=== PATIENT | male | born 1965 | race Hispanic/Latino ===

== ENCOUNTER 2022-10-06 06:06 | Observation (INO) | payer MEDICARE ==
[2022-10-03 12:33] LABS: APPEARANCE,URINE CLEAR (CLEAR); BILIRUBIN,URINE NEGATIVE (NEGATIVE); COLOR,URINE COLORLESS (YELLOW); GLUCOSE, URINE (UA) NEGATIVE (NEGATIVE); KETONES,URINE NEGATIVE (NEGATIVE); LEUKOCYTE ESTERASE ,URINE NEGATIVE Leu/uL (NEGATIVE); NITRATE,URINE NEGATIVE (NEGATIVE); PROTEIN,URINE NEGATIVE (NEGATIVE); UROBILINOGEN,URINE 0.2 mg/dL (0.2-1.0)
[2022-10-03 12:40] LABS: BASOPHILS % (AUTO) 0.3 % (0.0-5.0); HEMATOCRIT 45.7 % (42-54); LYMPHOCYTES % (AUTO) 21.4 % (21.0-51.0); MEAN CORPUSCULAR HEMOGLOBIN 31.5 pg (27.0-33.0); MEAN CORPUSCULAR HGB CONC 32.8 g/dL (32.0-36.0); MONOCYTES % (AUTO) 7.9 % (3.0-13.0); NEUTROPHILS % (AUTO) 69.1 % (40.0-77.0); PLATELET COUNT (AUTO) 201 K/uL (130-400); RED BLOOD CELL COUNT(AUTO) 4.76 MIL/uL (4.50-6.20); RED CELL DISTRIBUTION WIDTH 12.7 % (11.0-15.5); WHITE BLOOD COUNT (AUTO) 6.8 K/uL (4.8-10.8)
[2022-10-03 12:45] LABS: MUCUS,URINE RARE LPF (None Seen); RBC,URINE 0-1 /HPF (0-1)
[2022-10-03 12:58] LABS: INR 0.97 (0.85-1.15); PROTHROMBIN TIME 10.6 SEC (9.6-11.6)
[2022-10-03 12:59] LABS: PARTIAL THROMBOPLASTIN TIME 25.2 SEC (26.3-35.5)
[2022-10-03 13:06] LABS: ALBUMIN 4.1 g/dL (3.5-5.0); CREATININE 0.8 mg/dL (0.5-1.5); TOTAL PROTEIN, SERUM 7.3 g/dL (6.0-8.3)
[2022-10-03 13:29] VITALS: BP 141/86
[~2022-10-06] VITALS: Ht 177.8 cm; Wt 136.2 kg
[2022-10-06] VITALS (20 sets, daily range): BP systolic 98–136; BP diastolic 63–95
[~2022-10-06 06:06] MED LIST: ACET-2247 PO; ATOR40TA71 PO; HYDR12.54 PO; METF-444 PO; TRANEXAMIC ACID 1000MG/10ML ONE; VANCOMYCIN 1G VIAL ONE
[2022-10-06] MEDS ORDERED: CEFAZOLIN SODIUM 1 GM VIAL ONE (07:05)
[2022-10-06] MEDS ORDERED: EPINEPHRINE PF 1MG (1:1,000) 1 MG/ML AMP ONE (07:05)
[2022-10-06] MEDS ORDERED: 0.9%NACL 1000ML 1,000 ML IV ONE (07:05)
[2022-10-06] MEDS ORDERED: PROPOFOL 10 MG/ML 20ML VIAL IV ONE (07:48)
[2022-10-06] MEDS ORDERED: SUCCINYLCHOLINE 200MG/10ML SYR ONE (07:48)
[2022-10-06] MEDS ORDERED: LIDOCAINE PF 100MG/5ML (2%) SYRINGE 5ML ONE (07:48)
[2022-10-06] MEDS ORDERED: FENTANYL CITRATE PF 50 MCG/1 ML 2ML VIAL ONE ×2 (07:49→10:20)
[2022-10-06] MEDS ORDERED: ROCURONIUM 10MG/1ML SYR 10 MG/ML ML ONE ×2 (07:49→08:21)
[2022-10-06] MEDS ORDERED: MIDAZOLAM HCL 1 MG/ML 2ML VIAL ONE (07:49)
[2022-10-06] MEDS ORDERED: CEFAZOLIN SODIUM 3 GM VIAL IV ONE (07:55)
[2022-10-06] MEDS ORDERED: GLYCOPYRROLATE 1 MG/5 ML SYRINGE ONE (10:11)
[2022-10-06] MEDS ORDERED: NEOSTIGMINE 5MG/5ML SYR IV ONE (10:11)
[2022-10-06] MEDS ORDERED: KETOROLAC 30MG VIAL (30MG/ML) ONE (10:26)
[2022-10-06] MEDS ORDERED: POTASSIUM CHLORIDE 10% ELIXIR 20 MEQ/15 ML UDCUP PO PRN (10:30)
[2022-10-06] MEDS ORDERED: ONDANSETRON 4MG INJ IVP PRN (10:30)
[2022-10-06] MEDS ORDERED: LIDOCAINE HCL-MPF 1% 2ML VIAL IV PRN (10:30)
[2022-10-06] MEDS ORDERED: KCL 20 MEQ ERTAB PO PRN (10:30)
[2022-10-06] MEDS ORDERED: POTASSIUM CHLORIDE 20MEQ/100ML 100 ML IV PRN (10:30)
[2022-10-06] MEDS ORDERED: MORPHINE 4 MG SYG IVP PRN (10:30)
[2022-10-06] MEDS: ACETAMINOPHEN 500 MG TABLET PO SCH ×2 (10:30→18:45)
[2022-10-06] MEDS ORDERED: HYDROCODONE/ACETAMINOPHEN 5/325 MG TAB PO PRN (10:30)
[2022-10-06] MEDS: ACETAMINOPHEN 1,000 MG/100 ML VIAL IV SCH ×2 (10:52→18:00)
[2022-10-06] MEDS: TRAMADOL HCL 50 MG TABLET PO SCH ×2 (13:34→18:07)
[2022-10-06] MEDS: 0.9%NACL 1000ML 1,000 ML IV SCH ×2 (13:38→17:38)
[2022-10-06] MEDS: IBUPROFEN 800MG + NS 250ML IV SCH ×2 (15:27→22:29)
[2022-10-06] MEDS ORDERED: CEFAZOLIN SODIUM 3 GM in DEXTROSE 5%-WATER 100 ML IVPB SCH (15:30)
[2022-10-06] MEDS ORDERED: CEFAZOLIN SODIUM 1 GM VIAL IVP SCH (15:30)
[2022-10-06] MEDS: METFORMIN HCL 500 MG TABLET PO SCH (17:25)
[2022-10-06] MEDS: CELECOXIB 200 MG CAP PO SCH (20:31)
[2022-10-06] MEDS: FAMOTIDINE 20MG TAB PO SCH (20:31)
[2022-10-06] MEDS: HYDROCODONE/ACETAMINOPHEN 10/325 MG TAB PO PRN (22:27)
[2022-10-07] VITALS: BP 126/59
[2022-10-07] MEDS: TRAMADOL HCL 50 MG TABLET PO SCH ×4 (00:25→17:37)
[2022-10-07] MEDS: ACETAMINOPHEN 1,000 MG/100 ML VIAL IV SCH (01:27)
[2022-10-07] MEDS: ACETAMINOPHEN 500 MG TABLET PO SCH ×2 (01:28→10:48)
[2022-10-07] MEDS: 0.9%NACL 1000ML 1,000 ML IV SCH (01:36)
[2022-10-07 04:00] VITALS: BP 119/69
[2022-10-07 05:40] LABS: HEMATOCRIT 35.3 % (42-54); MEAN CORPUSCULAR HGB CONC 32.9 g/dL (32.0-36.0); MEAN CORPUSCULAR VOLUME 97.5 fL (79-99); RED BLOOD CELL COUNT(AUTO) 3.62 MIL/uL (4.50-6.20); WHITE BLOOD COUNT (AUTO) 6.1 K/uL (4.8-10.8)
[2022-10-07 06:11] LABS: CREATININE 0.7 mg/dL (0.5-1.5); POTASSIUM 3.6 mmol/L (3.5-5.1)
[2022-10-07] MEDS: IBUPROFEN 800MG + NS 250ML IV SCH (06:23)
[2022-10-07] MEDS: METFORMIN HCL 500 MG TABLET PO SCH ×2 (07:59→17:36)
[2022-10-07 08:00] VITALS: BP 124/64
[2022-10-07] MEDS: FAMOTIDINE 20MG TAB PO SCH (08:00)
[2022-10-07] MEDS: CELECOXIB 200 MG CAP PO SCH (08:00)
[2022-10-07] MEDS ORDERED: POLYETHYLENE GLYCOL 3350 17 GM POWD.PACK PO SCH (09:00)
[2022-10-07] MEDS ORDERED: ATORVASTATIN 40 MG TABLET PO SCH (09:00)
[2022-10-07] MEDS ORDERED: HYDROCHLOROTHIAZIDE 25 MG TABLET PO SCH (09:00)
[2022-10-07 12:27] VITALS: BP 118/67
[2022-10-07] MEDS: HYDROCODONE/ACETAMINOPHEN 10/325 MG TAB PO PRN (14:09)
[2022-10-07] MEDS ORDERED: ASPIRIN 325MG EC TAB PO SCH (15:00)
[2022-10-09] MEDS ORDERED: BISACODYL 10 MG SUPP.RECT RC PRN (10:30)
== END 2022-10-07 18:00 | disposition home or self-care (01) ==
LOC: DAH 06:06 → DAHIP 06:07 → DAH 06:07 → 3AH 13:07
PROVIDERS: ADMIT Orthopaedic Surgery Sports Medicine; ATTEND Orthopaedic Surgery Sports Medicine
DX: M17.11 Unilateral primary osteoarthritis, right knee (principal); Z20.822 Contact with and (suspected) exposure to COVID-19; Z79.82 Long term (current) use of aspirin; Z79.899 Other long term (current) drug therapy; Z98.890 Other specified postprocedural states; Z96.651 Presence of right artificial knee joint
CPT/HCPCS: 80053; 85025; 85610; 85730; 86850 ×2; 86900 ×2; 86901 ×2; 87088; 87426; 81001; 36415 ×3; 71045; 93005; 27447; 96365; 96366 ×3; 96367 ×2; 76942; 64447; 82948 ×7; 73562; 97161; 97039 ×3; 97530 ×3; 80048; 85027; 97116 ×2; A6260; C1776 ×4; G0378 ×29; A4663; J7030 ×3; J0690 ×4; J3370; J3010 ×2; J3490 ×2; J0330; J2710; J2001; J0171; J2250; J7060 ×2; J2704; J1885; J1741 ×2; A6223; A4649; A5120; A4215; A4223; A4222; A4221